=== PATIENT | female | born 1950 | race Caucasian/White ===

== ENCOUNTER 2024-10-10 18:47 | Observation (INO) | payer MEDICARE, SELFPAY ==
[2024-10-10] VITALS (12 sets, daily range): BP systolic 137–159; BP diastolic 81–99; PULSE 89–102; TEMP 36.7; O2SAT 93–96; BMI 36.6
--- NOTE | 2024-10-10 19:13 | ECG_ITS ---
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
--- NOTE | 2024-10-10 19:13 | CT_ITS ---
[address] [address] Patient Name: ANTHONY SCOTT MRN: [id number] date: 1950 Sex: F Assigned Patient Location: ER Current Patient Location: ER Accession/Order Number: [id number] Exam Date: 10/10/2024 20:45 Report Date: 10/10/2024 21:45 At the request of: MEHDI FALLON Procedure: CT soft tissue neck wo con EXAM: CT soft tissue neck wo con HISTORY: right parotid swelling. COMPARISON: None. TECHNIQUE: Axial CT scans of the neck were obtained without contrast. MPR images were obtained. Dose reduction techniques were achieved by using: automated exposure control and/or adjustment of mA and /or kV according to patient size and/or use of iterative reconstruction technique. FINDINGS: The visualized intracranial contents show no acute process. 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 The visualized orbits show no abnormal mass. The visualized paranasal sinuses show no air-fluid levels. Middle ear cavities and mastoids are clear. 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 There is swelling of the right parotid gland with associated mild edema in the right parapharyngeal space and adjacent lateral subcutaneous tissue. The left parotid gland appears normal. The nasopharynx, oropharynx and hypopharynx show no abnormal mass. The visualized oral tongue, the visualized floor the mouth and the submandibular glands appear normal. The thyroid gland is very small. The larynx shows no abnormal mass. The prevertebral space shows no edema. No adenopathy in the neck. The visualized upper lungs show nonspecific groundglass densities in the right upper lobe. Posterior discovertebral complexes result in moderate central spinal stenosis at C4-C5 and mild central spinal stenosis at C5-C6. Moderate stenosis of bilateral C3-C4 neural foramina and moderate to severe stenosis of the right C4-C5 C5-C6 neural foramina secondary to decreased disc height and uncovertebral hypertrophy. CT/CT soft tissue neck wo con IMPRESSION: Right parotiditis with associated mild edema in the right parapharyngeal space and adjacent lateral subcutaneous tissue. Posterior discovertebral complexes result in moderate central spinal stenosis at C4-C5 and mild central spinal stenosis at C5-C6. Moderate stenosis of bilateral C3-C4 neural foramina and moderate to severe stenosis of the right C4-C5 C5-C6 neural foramina secondary to decreased disc height and uncovertebral hypertrophy. Nonspecific groundglass densities in the visualized right upper lobe. Electronically authenticated by: ASHWIN LARA Date: 10/10/2024 21:45
--- NOTE | 2024-10-10 19:13 | XR_ITS ---
The [address] [address] Patient Name: ANTHONY SCOTT MRN: [id number] date: 1950 Sex: F Assigned Patient Location: ER Current Patient Location: ER Accession/Order Number: [id number] Exam Date: 10/10/2024 19:30 Report Date: 10/10/2024 20:28 At the request of: MEHDI FALLON Procedure: XR chest 1V EXAM: XR chest 1V at 1921 hours HISTORY: Cough COMPARISON: None. TECHNIQUE: AP upright portable chest x-ray FINDINGS: The heart is not enlarged and the vasculature is not distended. A very small amount of linear atelectasis or scarring is seen in the left lower lung. No acute infiltrate, effusion or pneumothorax is identified. The osseous structures are grossly intact. XR/XR chest 1V IMPRESSION: No apparent acute infiltrate or evidence of cardiac decompensation. Slight chronic changes are seen in the left lower lung. Direct comparison with a previous study may be helpful in determining the chronicity of these findings. Electronically authenticated by: YSABEL COLORADO Date: 10/10/2024 20:28
--- NOTE | 2024-10-10 19:15 | ED_ITS ---
HPI HPI - General Adult General Chief complaint: Weakness Stated complaint: General Weakness Time Seen by Provider: 10/10/24 19:04 Source: patient and family Mode of arrival: Wheelchair Limitations: physical limitation History of Present Illness HPI narrative: Patient is a 74-year-old female who presents to the emergency department with family member for multiple complaints that have been ongoing for almost 3 weeks. This patient has been previously evaluated at [facility] emergency department as well as [facility] emergency department. She presents to this emergency department tonight complaining of pain in the mouth associated with an ulcerated lesion on the tongue, cough and phlegm production as well as a painful swollen area to the right mandible under the right ear. She has had no fevers, shortness of breath, chest pain. She states she has been spitting up phlegm but has had no persistent vomiting or diarrhea. She states she was placed on an antibiotic for urinary tract infection, she only finished 2 to 3 days of this medication because she states it upset her stomach. 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 She states she came to this emergency department tonight because she cannot stand it anymore . She has been using [id number] nasal sprays and Zyrtec without improvement. Related Data Home Medications ?Medication ?Instructions ?Recorded ?Confirmed amlodipine 5 mg tablet 5 mg PO DAILY 10/10/24 10/10/24 atorvastatin 40 mg tablet 40 mg PO QPM 10/10/24 10/10/24 carvedilol 25 mg tablet 25 mg PO BID 10/10/24 10/10/24 chlorthalidone 25 mg tablet 12.5 mg PO DAILY 10/10/24 10/10/24 fluticasone propionate 50 2 spray intranasal DAILY 10/10/24 10/10/24 mcg/actuation nasal spray,suspension glipizide 2.5 mg tablet, extended 2.5 mg PO DAILY 10/10/24 10/10/24 release 24 hr hydralazine 100 mg tablet 100 mg PO TID 10/10/24 10/10/24 levothyroxine 75 mcg tablet 75 mcg PO DAILY 10/10/24 10/10/24 lorazepam 0.5 mg tablet 0.5 mg PO TID PRN anxiety 10/10/24 10/10/24 metoclopramide HCl 10 mg tablet 10 mg PO Q6H PRN nausea and 10/10/24 10/10/24 vomiting mirtazapine 15 mg tablet 15 mg PO QPM 10/10/24 10/10/24 pioglitazone 15 mg tablet 15 mg PO DAILY 10/10/24 10/10/24 spironolactone 25 mg tablet 25 mg PO BID 10/10/24 10/10/24 Allergies Allergy/AdvReac Type Severity Reaction Status Date / Time Sulfa (Sulfonamide Allergy Severe Rash Verified 10/10/24 19:02 Antibiotics) acetaminophen (From Vicodin) AdvReac Mild diaphoresis Verified 10/10/24 19:02 hydrocodone (From Vicodin) AdvReac Mild diaphoresis Verified 10/10/24 19:02 ketorolac (From Toradol) AdvReac Mild diaphoresis Verified 10/10/24 19:02 amoxicillin (From Augmentin) AdvReac Nausea Verified 10/10/24 19:02 clavulanic acid (From AdvReac Nausea Verified 10/10/24 19:02 Augmentin) Opioid HPI Opioid Management Most Recent Opioid Data: No Data to Display Review of Systems ROS Constitutional Denies: fever or chills Eyes Denies: change in vision Ears, nose, mouth, and throat Reports: throat pain and nasal congestion Cardiovascular Denies: chest pain Respiratory Reports: cough; Denies: shortness of breath Gastrointestinal Reports: nausea; Denies: abdominal pain, vomiting or diarrhea Musculoskeletal Denies: back pain Integumentary/Breast Denies: rash Neurological Denies: headache, numbness in extremities or weakness in extremities Hematologic/Lymphatic Denies: easy bruising or easy bleeding PFSH PFS Social History Little interest or pleasure in doing things: not at all Feeling down, depressed, or hopeless: not at all Exam Narrative Exam Narrative: Gen.: Awake, alert, in no distress Head: Normocephalic, atraumatic ENT: Moist mucous membranes, 1 cm ulcerated area to the right distal tip of the tongue. No vesicles or blistering of the mouth noted. Bilateral TMs are clear. Swollen firm and tender area inferior to the right ear located in the angle of the mandible. No overlying erythema or fluctuance. Respiratory: No respiratory distress, lungs clear bilaterally Cardio: Regular rate and rhythm Gastrointestinal: Abdomen is soft, nondistended and nontender to palpation Extremities: Moves extremities equally, no injuries noted Psych: Normal mood and affect Neuro: No focal neuro deficit Skin: Warm, dry, intact Constitutional Vital Signs, click to edit/add: Last Vital Signs Temp 98.1 F 10/10/24 19:03 Pulse 102 H 10/10/24 20:16 Resp 20 10/10/24 20:16 BP 159/81 H 10/10/24 20:16 Pulse Ox 96 10/10/24 20:16 O2 Del Method Room Air 10/10/24 19:03 Course Vital Signs Vital signs: Vital Signs Temperature 98.1 F 10/10/24 19:03 Pulse Rate 100 H 10/10/24 19:03 Respiratory Rate 18 10/10/24 19:03 Blood Pressure 137/99 H 10/10/24 19:03 Pulse Oximetry 95 10/10/24 19:03 Oxygen Delivery Method Room Air 10/10/24 19:03 Temperature 98.1 F 10/10/24 19:03 Pulse Rate 102 H 10/10/24 20:16 Respiratory Rate 20 10/10/24 20:16 Blood Pressure 159/81 H 10/10/24 20:16 Pulse Oximetry 96 10/10/24 20:16 Oxygen Delivery Method Room Air 10/10/24 19:03 Medical Decision Making MDM Narrative Medical decision making narrative: On arrival to the ER, I evaluated the patient and she complains primarily of pain inferior to the right ear where there is a swollen area in the angle of the mandible. She also has an ulcerated area to the tongue. Labs, urine specimen, EKG, chest x-ray and CT of the soft tissue of the neck were ordered for the patient. Magic mouthwash was ordered for stomatitis, IV fluids and Zofran were given. Records from [facility] were obtained showing the patient was seen on 10/06/2024. She had a CT of the abdomen and pelvis showing a pelvic mass which may represent cancer and she had unremarkable lab studies and negative COVID test. She was referred to gynecology and her primary care doctor. We did not receive records from [facility]. 2153: Patient received IV fluids, Zofran. She had episodes of gagging with the Magic mouthwash. No persistent vomiting in the ER. Records from [facility] shows that the patient's creatinine was 1.6 on 10/06/2024. Today her creatinine is elevated at 2.5 with a BUN of 65. Suspect this is due to poor oral intake from upper respiratory symptoms and stomatitis. CT of the soft tissue of the neck shows parotitis. Case is turned over to attending physician at this time. SHARED APC VISIT, PHYSICIAN ATTESTATION: [id number] I performed a substantive part of the MDM during the patient?s E/M visit. I personally evaluated and examined the patient. I personally made or approved the documented management plan and acknowledge its risk of complications. Medical Records Medical records reviewed: Yes I reviewed the patient's medical records Lab Data Lab results reviewed: Yes I reviewed the patient's lab results Labs: Lab Results 10/10/24 Range/Units 19:51 WBC 7.1 (4.0-11.0) 10^3/uL RBC 4.27 (4.20-5.40) 10^6/uL Hgb 12.0 (12.0-16.0) g/dL Hct 37.1 (36.0-48.0) % MCV 86.9 (81.0-99.0) fL MCH 28.1 (26.7-34.0) pg MCHC 32.3 (29.9-35.2) g/dL RDW 13.9 (11.0-15.0) % Plt Count 447 (150-450) 10^3/uL MPV 8.8 L (9.5-13.5) fL Seg Neuts % (Manual) 85.0 H (43.0-75.0) Lymphocytes % (Manual) 6.0 L (20.5-60.0) % Atypical Lymphs % (Man) 2.0 % Monocytes % (Manual) 7.0 (1.7-12.0) % Eosinophils % (Manual) 0.0 L (0.9-7.0) % Basophils % (Manual) 0.0 L (0.2-2.0) % Myelocytes % 1.0 Neutrophils # (Manual) 6.03 (1.4-6.5) 10^3/uL Lymphocytes # (Manual) 0.42 L (1.20-3.80) 10^3/uL Abs Atypical Lymphs Man 0.14 Monocytes # (Manual) 0.49 (0.30-0.80) 10^3/uL Eosinophils # (Manual) 0.00 (0.00-0.70) 10^3/uL Basophils # (Manual) 0.00 (0.00-0.10) 10^3/uL Myelocytes # 0.07 ESR >130 H (<=30) mm/hr PT 10.6 (9.0-11.6) sec INR 1.00 Sodium 131 L (136-145) mmol/L Potassium 5.1 (3.5-5.1) mmol/L Chloride 97 L (98-107) mmol/L Carbon Dioxide 15.8 L (21.0-32.0) mmol/L Anion Gap 23.3 BUN 65.0 H (7.0-18.0) mg/dL Creatinine 2.49 H (0.55-1.02) mg/dL Est GFR ( Amer) 23 L (>=60 mL/min/1.73m^2) Est GFR (Non-Af Amer) 19 L (>=60 mL/min/1.73m^2) BUN/Creatinine Ratio 26.1 Glucose 144 H (74-106) mg/dL Lactate 1.1 (0.4-2.0) mmol/L Calcium 9.1 (8.5-10.1) mg/dL Total Bilirubin 0.5 (0.2-1.0) mg/dL AST 48 H (15-37) U/L ALT 58 (14-59) U/L Alkaline Phosphatase 121 H (46-116) U/L Troponin I High Sens 7.9 (4.0-51.3) pg/mL C-Reactive Protein 14.21 H (<=0.50) mg/dL Total Protein 8.7 H (6.4-8.2) g/dL Albumin 2.9 L (3.4-5.0) g/dL Globulin 5.8 g/dL Albumin/Globulin Ratio 0.5 Amylase 814 H* (25-115) U/L Lipase 40.0 (16.0-77.0) U/L Imaging Data Chest x-ray: Radiologist's impression: ITS Impressions Chest X-Ray 10/10/24 19:13 IMPRESSION: No apparent acute infiltrate or evidence of cardiac decompensation. Slight chronic changes are seen in the left lower lung. Direct comparison with a previous study may be helpful in determining the chronicity of these findings. Electronically authenticated by: YSABEL COLORADO Date: 10/10/2024 20:[address] 10/10/24 19:13 IMPRESSION: Right parotiditis with associated mild edema in the right parapharyngeal space and adjacent lateral subcutaneous tissue. Posterior discovertebral complexes result in moderate central spinal stenosis at C4-C5 and mild central spinal stenosis at C5-C6. Moderate stenosis of bilateral C3-C4 neural foramina and moderate to severe stenosis of the right C4-C5 C5-C6 neural foramina secondary to decreased disc height and uncovertebral hypertrophy. Nonspecific groundglass densities in the visualized right upper lobe. Electronically authenticated by: ASHWIN LARA Date: 10/10/2024 21:45 ECG Data Attestation: I personally reviewed and interpreted this ECG as follows: (Normal sinus rhythm at a rate of 98 with occasional PVC, no acute ST elevation. EKG reviewed by attending physician) Discharge Plan Discharge Patient Disposition: Still a Patient
[2024-10-10] MEDS: ONDANSETRON PF 4 MG/2 ML VIAL IV (20:01)
[2024-10-10] MEDS: 0.9 % SODIUM CHLORIDE 1,000 ML 250 ML IV (20:01)
[2024-10-10 20:02] LABS: Hematocrit 37.1 % (36.0-48.0); Mean Corpuscular HGB Conc 32.3 g/dL (29.9-35.2); Mean Corpuscular Hemoglobin 28.1 pg (26.7-34.0); Mean Corpuscular Volume 86.9 fL (81.0-99.0); Mean Platelet Volume 8.8 fL (9.5-13.5); Platelet Count 447 10^3/uL (150-450); Red Blood Count 4.27 10^6/uL (4.20-5.40); Red Cell Distribution Width 13.9 % (11.0-15.0); White Blood Count 7.1 10^3/uL (4.0-11.0)
[2024-10-10] MEDS: lidocaine HCL 15 ML, MAG HYDROX/ALUMINUM HYD/SIMETH 30 ML, diphenhydrAMINE HCL 25 MG PO (20:02)
[2024-10-10 20:25] LABS: Erythrocyte Sedimentation Rate >130 mm/hr (<=30)
[2024-10-10 20:29] LABS: Prothrombin Time 10.6 sec (9.0-11.6)
[2024-10-10 20:35] LABS: Lactate/Lactic Acid 1.1 mmol/L (0.4-2.0)
[2024-10-10 20:36] LABS: Atypical Lymphocytes Abs Man 0.14; Lymphocytes Absolute Manual 0.42 10^3/uL (1.20-3.80); Monocytes Absolute Manual 0.49 10^3/uL (0.30-0.80); Myelocytes Absolute Manual 0.07; Segmented Neut Absolute Manual 6.03 10^3/uL (1.4-6.5)
[2024-10-10 20:37] LABS: Sodium 131 mmol/L (136-145)
[2024-10-10 20:38] LABS: Alanine Aminotransferase 58 U/L (14-59); Alkaline Phosphatase 121 U/L (46-116); Anion Gap 23.3; Aspartate Amino Transferase 48 U/L (15-37); BUN Creatinine Ratio 26.1; Bilirubin Total 0.5 mg/dL (0.2-1.0); Calcium 9.1 mg/dL (8.5-10.1); Carbon Dioxide 15.8 mmol/L (21.0-32.0); Chloride 97 mmol/L (98-107); Estimated GFR (African America 23 (>=60 mL/min/1.73m^2); Estimated GFR (Non-African Ame 19 (>=60 mL/min/1.73m^2); Glucose 144 mg/dL (74-106); Potassium 5.1 mmol/L (3.5-5.1); Total Protein 8.7 g/dL (6.4-8.2)
[2024-10-10 20:39] LABS: Albumin Globulin Ratio 0.5; Albumin Level 2.9 g/dL (3.4-5.0); C Reactive Protein 14.21 mg/dL (<=0.50); Globulin 5.8 g/dL
[2024-10-10 20:40] LABS: Amylase 814 U/L (25-115)
[2024-10-10 20:41] LABS: Troponin I High Sensitivity 7.9 pg/mL (4.0-51.3)
[2024-10-10] MEDS: PIPERACILLIN SODIUM/TAZOBACTAM 4.5 GM in 0.9 % SODIUM CHLORIDE 50 ML IV (22:29)
[2024-10-11] VITALS (27 sets, daily range): BP systolic 123–166; BP diastolic 72–110; PULSE 72–84; TEMP 36.7–37.6; O2SAT 88–95; BMI 36.9
[2024-10-11] MEDS: 0.9 % SODIUM CHLORIDE 1,000 ML 125 ML IV (01:48)
[2024-10-11] MEDS: PIPERACILLIN SODIUM/TAZOBACTAM 3.375 GM in 0.9 % SODIUM CHLORIDE 50 ML IV ×3 (06:19→22:17)
[2024-10-11] MEDS: ENSURE HP 237 ML LIQUID PO (09:11)
[2024-10-11 11:07] LABS: Glucometer 98 mg/dL (74-106)
[2024-10-11] MEDS: DEXTROSE 5 % IN WATER 1,000 ML 75 ML IV (11:31)
[2024-10-11] MEDS: 0.9 % SODIUM CHLORIDE 1,000 ML 50 ML IV (11:31)
[2024-10-11] MEDS: LORAZEPAM 2 MG/ML VIAL 0.5 MG IV (14:43)
--- NOTE | 2024-10-11 15:10 | CT_ITS ---
[address] [address] Patient Name: ANTHONY SCOTT MRN: [id number] date: 1950 Sex: F Assigned Patient Location: ER Current Patient Location: PR Accession/Order Number: [id number] Exam Date: 10/11/2024 15:48 Report Date: 10/11/2024 16:46 At the request of: SARY MIGUEL Procedure: CT abdomen pelvis wo con EXAM: CT abdomen pelvis wo con REASON FOR EXAM: Female, 74 years, elevated liver enzymes, MARTHA, nausea. TECHNIQUE: Computed tomography of the abdomen and pelvis is performed in the axial projection from the lung bases to the pubic symphysis. Sagittal and coronal reconstructed images are performed. Dose reduction techniques were achieved by using automated exposure control and/or adjustment of mA and/or KVP according to patient size and/or use of iterative reconstruction technique. Study was performed without IV contrast. Study was performed without oral contrast. COMPARISON: None. FINDINGS: Lung bases: There is prominence to the interstitial markings at the lung bases. This may represent chronic interstitial lung disease or interstitial edema. There is no pleural effusion. Coronary artery calcifications are partially imaged. Evaluation of the solid abdominal organs is limited in the absence of intravenous contrast. Liver: The liver is normal. Gallbladder: The gallbladder is not visualized. Spleen: The spleen is normal. Pancreas: There is diffuse pancreatic atrophy. Adrenal glands: There is diffuse enlargement of both adrenal glands, consistent with hyperplasia. Right kidney: The kidney is normal in size. There is nonspecific perinephric stranding. There is no renal calculus or hydronephrosis. Left kidney: The kidney is normal in size. There is nonspecific perinephric stranding. There is no renal calculus or hydronephrosis. Stomach: The stomach is under distended, limiting evaluation for wall abnormalities. Small bowel: The small bowel is normal. Large bowel: The colon is normal. Appendix: The appendix is visualized, and is normal. There is high density material within the appendix which may represent inspissated debris or prior contrast administration. Aorta: There are diffuse atherosclerotic calcifications of the abdominal aorta. IVC: The IVC is normal. Retroperitoneum: Normal retroperitoneum. Bladder: There is air within the bladder lumen. This may represent recent catheterization. Pelvic organs: The uterus is abnormal. The endometrium is significantly thickened for a postmenopausal patient and heterogeneous. The endometrium measures approximately 3.5 cm in thickness. Abdominal wall: Normal abdominal wall. Osseous structures: There are degenerative changes throughout the spine. Sclerotic foci are seen within the pelvis, within the right ilium adjacent to the sacroiliac joint, and within the left superior pubic ramus. Additional sclerotic focus is noted within the left posterior ilium. CT/CT abdomen pelvis wo con IMPRESSION: Significantly abnormal appearance to the uterus, with markedly thickened and heterogeneous endometrium for a postmenopausal patient. This is worrisome for endometrial carcinoma. Endometrial sampling is warranted. No discrete hepatic abnormality is seen. Sclerotic foci within the pelvis. Findings may represent bony metastases. Nonspecific bilateral perinephric stranding may represent medical renal disease. Prominent interstitial markings at the lung bases, question chronic interstitial lung disease or interstitial edema. Electronically authenticated by: MARÍA HENDERSON Date: 10/11/2024 16:46
--- NOTE | 2024-10-11 15:12 | PM.HP ---
HPI H&P: HPI History of Present Illness Chief complaint: General Weakness Narrative: Patient is a 74 y.o White female with past medical history of Hypothyroidism, Noninsulin dep type 2 diabetes, seasonal allergies, Hypertension, HLD, anxiety, Breast cancer with right mastectomy (2017) and bowel resection with colostomy reversal 2018, COVID and sepsis 2019 who presented to the ER last night with multiple complaints that have been ongoing for almost 3 weeks. This patient has been previously evaluated at [facility] emergency department as well as [facility] emergency department. She presents to this emergency department tonight complaining of pain in the mouth associated with an ulcerated lesion on the tongue, cough and phlegm production as well as a painful swollen area to the right mandible under the right ear. She has had no fevers, shortness of breath, chest pain. She states she has been spitting up phlegm but has had no persistent vomiting or diarrhea. She states she was placed on an antibiotic for urinary tract infection, she only finished 2 to 3 days of this medication because she states it upset her stomach. She has been to her regular primary care provider as well as her pharmacy clinical coordinator office. She states she came to this emergency department because she cannot stand it anymore . She has been using [id number] nasal sprays and Zyrtec without improvement. ON admission exam, Patient is accompanied by today. He also helps with history, Patient started getting ill about 1.5 weeks ago. She notes increased mucus production, and gagging which resulted in her inability to not take her pills or have very little food. She has lost 20 pounds. She had a UTI but could not take her antibiotic medication. She went to several ER's with no relief. about 2 days ago she developed several mouth ulcerations along with tongue ulceration making it even more difficult for her to ear or drink. Then swelling to the right side of her face and cheek, along with chills. Of note she says she was diagnosed with probable Endometrial cancer about 1 year ago but has not done anything about it yet. This was also seen on CT of the Ab/pelvis wo contrast done here. ER findings: WBC's 7.1, Hb 12.0, plt 447, CRP 14.21, Amylase 814, ESR 130, Na131, K 5.1, Cr 2.49, BUN 65, GFT 19, AST 48, ALT 58, Alk phos 121; CT head and neck soft tissues shows Right parotiditis with associated mild edema in the right parapharyngeal space and adjacent lateral subcutaneous tissue. CXR showed no acute disease. Opioid HPI Opioid Management Most Recent Pain and Opioid Data: Last Pain Scale 5 10/11/24 10:00 10/11/24 Review of Systems ROS Narrative ROS: a complete review of systems were reviewed with patient and are positive as below or listed in History of Chief Complaint. General: fever, chills, night sweats, weight loss Head: headache, no trauma, visual changes, nausea or vomiting Skin: no reported rashes, itching or sores Eyes: no blurriness of vision Ears: no reported hearing loss, vertigo, earache, or tinnitus, ear pain Throat: no sore throat, hoarseness; but swelling of neck/face , tongue pain Heart: no chest pain Lungs: no shortness of breath but cough GI: no diarrhea or vomiting/nausea, no appetite Urinary: no urinary urgency, frequency or pain Neuro: no numbness or tingling HEM: no bleeding issues or bruising ENDO: no thyroid problems Psych: no anxiety or depression [facility] Medical History (Updated 10/11/24 @ 17:39 by Elaine La DO) History of diabetes mellitus ?Z86.39 - Personal history of other endocrine, nutritional and metabolic disease (ICD-10) History of hypertension ?Z86.79 - Personal history of other diseases of the circulatory system (ICD-10) History of hypothyroidism ?Z86.39 - Personal history of other endocrine, nutritional and metabolic disease (ICD-10) History of diverticulitis ?Z87.19 - Personal history of other diseases of the digestive system (ICD-10) Surgical History History of colon surgery ?Z98.890 - Other specified postprocedural states (ICD-10) History of mastectomy ?Z90.10 - Acquired absence of unspecified breast and nipple (ICD-10) History of cholecystectomy ?Z90.49 - Acquired absence of other specified parts of digestive tract (ICD-10) Social History Little interest or pleasure in doing things: not at all Feeling down, depressed, or hopeless: not at all Meds Home Medications and Allergies Home Medications ?Medication ?Instructions ?Recorded ?Confirmed ?Type amlodipine 5 mg tablet 5 mg PO DAILY 10/10/24 10/10/24 History atorvastatin 40 mg tablet 40 mg PO QPM 10/10/24 10/10/24 History carvedilol 25 mg tablet 25 mg PO BID 10/10/24 10/10/24 History chlorthalidone 25 mg tablet 12.5 mg PO DAILY 10/10/24 10/10/24 History fluticasone propionate 50 2 spray intranasal DAILY 10/10/24 10/10/24 History mcg/actuation nasal spray,suspension glipizide 2.5 mg tablet, extended 2.5 mg PO DAILY 10/10/24 10/10/24 History release 24 hr hydralazine 100 mg tablet 100 mg PO TID 10/10/24 10/10/24 History levothyroxine 75 mcg tablet 75 mcg PO DAILY 10/10/24 10/10/24 History lorazepam 0.5 mg tablet 0.5 mg PO TID PRN anxiety 10/10/24 10/10/24 History metoclopramide HCl 10 mg tablet 10 mg PO Q6H PRN nausea and 10/10/24 10/10/24 History vomiting mirtazapine 15 mg tablet 15 mg PO QPM 10/10/24 10/10/24 History pioglitazone 15 mg tablet 15 mg PO DAILY 10/10/24 10/10/24 History spironolactone 25 mg tablet 25 mg PO BID 10/10/24 10/10/24 History Allergies Allergy/AdvReac Type Severity Reaction Status Date / Time Sulfa (Sulfonamide Allergy Severe Rash Verified 10/10/24 19:02 Antibiotics) acetaminophen (From Vicodin) AdvReac Mild diaphoresis Verified 10/10/24 19:02 hydrocodone (From Vicodin) AdvReac Mild diaphoresis Verified 10/10/24 19:02 ketorolac (From Toradol) AdvReac Mild diaphoresis Verified 10/10/24 19:02 amoxicillin (From Augmentin) AdvReac Nausea Verified 10/10/24 19:02 clavulanic acid (From AdvReac Nausea Verified 10/10/24 19:02 Augmentin) Exam Narrative Exam Narrative: General: Patient is alert, and oriented to person, place and time with normal affect, proper hygiene Skin: no visible rashes, or ulcers Head: atraumatic, acephalic Eyes: PERRLA, no nystagmus present, conjunctiva clear, no scleral icterus Ears: normal gross auditory acuity Nose: symmetric, no discharge, no maxillary or frontal sinus tenderness Mouth/Throat: no erythema, exudate, or tonsillar enlargement, but several mouth ulcerations with largest being about 1cm x 1cm on the right side of tongue Neck: palpable parotid gland on the right with swelling noted Heart: Normal rate and rhythm, no murmurs/rubs/gallops Lungs: no audible wheezes, crackles and normal breath sounds all lung dickson Abdomen: Normal audible bowel sounds, no distension Musculoskeletal: no swelling bilateral lower extremities Neuro: CN II-X grossly intact Constitutional Vital Signs, click to edit/add: Last Vital Signs Temp 99.2 F 10/11/24 11:34 Pulse 84 10/11/24 11:34 Resp 20 10/11/24 11:34 BP 148/98 H 10/11/24 11:34 Pulse Ox 93 L 10/11/24 13:11 O2 Del Method Room Air 10/11/24 11:34 Results Labs Labs: Short CBC 10/10/24 Range/Units 19:51 WBC 7.1 (4.0-11.0) 10^3/uL Hgb 12.0 (12.0-16.0) g/dL Hct 37.1 (36.0-48.0) % Plt Count 447 (150-450) 10^3/uL BMP 10/10/24 19:51 Sodium 131 L Potassium 5.1 Chloride 97 L Carbon Dioxide 15.8 L BUN 65.0 H Creatinine 2.49 H Glucose 144 H Calcium 9.1 Liver Function 10/10/24 Range/Units 19:51 Total Bilirubin 0.5 (0.2-1.0) mg/dL AST 48 H (15-37) U/L ALT 58 (14-59) U/L Alkaline Phosphatase 121 H (46-116) U/L Albumin 2.9 L (3.4-5.0) g/dL Assessment and Plan Assessment and Plan (1) Acute parotitis: Assessment and Plan: Patient has been accepted at [facility] for ENT evaluation. She was placed on Zosyn in the ER. I have added IV Tylenol for pain control. I have also added viral testing of influenza but at transfer facility would recommend testing for mumps virus, HSV, EBV these are send out tests at this facility. (2) Tongue ulceration: Assessment and Plan: could also be viral related but limiting oral intake, pain control (3) Acute kidney injury: Assessment and Plan: Patient with history of multiple ER visits, Could be contrast induced nephropathy. Will treat with IVF. Cr 2.49, BUN 65. No prior history of CKD (4) Dehydration: Assessment and Plan: Patient with poor appetite and intake over the last few days, continue IVF, clear liquids as tolerated (5) Endometrial cancer: Assessment and Plan: as seen on our CT of the abd/pelvis, i could not use contrast secondary to renal impairment; this is known to patient. Further investigation per tertiary care center if warranted. (6) Generalized weakness: Assessment and Plan: could be dehydration verse viral/bacterial infection. (7) History of diabetes mellitus: Assessment and Plan: Holding oral medications for now. check q4 hours accuchecks (8) History of hypertension: Assessment and Plan: Holding home meds for now, prn hydralazine if needed. (9) History of hypothyroidism: Assessment and Plan: will resume levothyroxine when can tolerate to swallow Plan Patient is a full code Continue heparin for DVT propylaxis Patient is inpatient status, Expectation to transfer to [facility] tertiary care [facility] accepting Dr. Hernandes once bed available
[2024-10-11 15:30] LABS: Basophils Percent Auto 0.3 % (0.2-2.0); Eosinophils Absolute Auto 0.1 10^3/uL (0.0-0.7); Eosinophils Percent Auto 1.4 % (0.9-7.0); Hematocrit 32.4 % (36.0-48.0); Hemoglobin 10.4 g/dL (12.0-16.0); Immature Granulocytes Abs Auto 0.03 10^3/uL (0.00-0.03); Immature Granulocytes Pct Auto 0.5 % (0.0-0.5); Lymphocytes Absolute Auto 0.4 10^3/uL (1.2-3.8); Lymphocytes Percent Auto 5.5 % (20.5-60.0); Mean Corpuscular HGB Conc 32.1 g/dL (29.9-35.2); Mean Corpuscular Hemoglobin 28.3 pg (26.7-34.0); Mean Corpuscular Volume 88.3 fL (81.0-99.0); Mean Platelet Volume 8.7 fL (9.5-13.5); Monocytes Absolute Auto 0.3 10^3/uL (0.3-0.8); Neutrophils Absolute Auto 5.6 10^3/uL (1.4-6.5); Neutrophils Percent Auto 87.3 % (43.0-75.0); Platelet Count 379 10^3/uL (150-450); Red Blood Count 3.67 10^6/uL (4.20-5.40); Red Cell Distribution Width 13.9 % (11.0-15.0); White Blood Count 6.4 10^3/uL (4.0-11.0)
[2024-10-11 15:42] LABS: Glucometer 131 mg/dL (74-106)
[2024-10-11 15:48] LABS: Alanine Aminotransferase 50 U/L (14-59); Albumin Globulin Ratio 0.6; Albumin Level 2.5 g/dL (3.4-5.0); Alkaline Phosphatase 100 U/L (46-116); Aspartate Amino Transferase 49 U/L (15-37); BUN Creatinine Ratio 24.3; Bilirubin Total 0.6 mg/dL (0.2-1.0); Carbon Dioxide 15.7 mmol/L (21.0-32.0); Chloride 103 mmol/L (98-107); Estimated GFR (African America 33 (>=60 mL/min/1.73m^2); Estimated GFR (Non-African Ame 27 (>=60 mL/min/1.73m^2); Globulin 4.2 g/dL; Potassium 4.7 mmol/L (3.5-5.1); Sodium 135 mmol/L (136-145); Total Protein 6.7 g/dL (6.4-8.2)
[2024-10-11 15:54] LABS: Calcium 7.8 mg/dL (8.5-10.1); Glucose 130 mg/dL (74-106)
[2024-10-11 17:06] LABS: Influenza Virus A Antigen Negative; Influenza Virus B Antigen Negative; Internal Control Within Normal Limits
[2024-10-11] MEDS: LACTATED RINGER'S SOLUTION 1,000 ML 125 ML IV (19:00)
[2024-10-11] MEDS: SCOPOLAMINE 1 MG/3 DAYS TRANSDERM PATCH 1 PATCH TD (19:01)
[2024-10-11] MEDS: FAMOTIDINE/PF 20 MG/2 ML VIAL IV (19:01)
[2024-10-11] MEDS: ACETAMINOPHEN 1,000 MG/100 ML PREMIX 400 MG IV (19:01)
[2024-10-11 19:18] LABS: Bilirubin Urine NEGATIVE (NEGATIVE); Blood Urine NEGATIVE (NEGATIVE); Color Urine LT. YELLOW (YELLOW); Glucose Urine UA NEGATIVE (NEGATIVE); Ketones Urine TRACE mg/dL (NEGATIVE); Leukocyte Esterase Urine TRACE (NEGATIVE); Nitrite Urine NEGATIVE (NEGATIVE); Protein Urine TRACE mg/dL (NEG/TRACE); Urobilinogen Urine 0.2 EU/dL (0.2-1.0); pH Urine 5.5 (5.0-9.0)
[2024-10-11 19:19] LABS: Clarity Urine SLIGHTLY CLOUDY (CLEAR)
[2024-10-11 19:27] LABS: RBC Urine 0-2 #/HPF (0-2)
[2024-10-11 19:28] LABS: Bacteria Urine SMALL #/HPF (NONE SEEN); Cast Seen? NONE SEEN #/LPF (NONE SEEN); Crystals Seen? None Seen #/HPF (None Seen); Mucus Urine NONE SEEN (NONE SEEN); Squamous Epithelial Cell Urine FEW #/LPF (NONE/RARE); Urine Culture Indicated YES
[2024-10-11 20:17] LABS: Glucometer 103 mg/dL (74-106)
[2024-10-11] MEDS: HEPARIN SODIUM (PORCINE) 5,000 UNIT/ML VIAL 5000 UNIT SUBQ (22:16)
[2024-10-12] VITALS: BP 163/78; PULSE 81; TEMP 36.6; O2SAT 91
[2024-10-12 00:03] VITALS: PULSE 74
[2024-10-12 00:56] LABS: Glucometer 112 mg/dL (74-106)
--- NOTE | 2024-10-12 02:41 | PC.NURSE ---
[facility] here to take patient to [facility] in [facility]. Report Called to Sherly at this time. Patient has no c/o.
--- NOTE | 2024-10-12 17:49 | P.DS_ITS ---
DS: Providers Provider Date of admission: 10/11/24 16:38 Primary care physician: JENNYFER SHANKS MD Admitting clinician: Elaine La Consults: 10/11/24 Consult to Dietitian Routine Reason for consultation: weight loss lack of jo-ann Discharging clinician: Elaine La DS: Diagnosis Discharge Diagnosis (1) Acute parotitis: (2) Tongue ulceration: (3) Acute kidney injury: (4) Dehydration: (5) Endometrial cancer: (6) Generalized weakness: (7) History of diabetes mellitus: (8) History of hypertension: (9) History of hypothyroidism: DS: Summary Hospital Course Hospital Course: Patient was transferred at 2:43am on 10/12/24 to [facility] in [facility]. Time Spent with Patient Time attestation: Total time spent providing and/or coordinating discharge services: Exam Narrative Exam Narrative: Patient was transferred prior to my arrival this morning. Constitutional Vital Signs, click to edit/add: Last Vital Signs Temp 98 F 10/12/24 00:00 Pulse 74 10/12/24 00:03 Resp 18 10/12/24 00:00 BP 163/78 H 10/12/24 00:00 Pulse Ox 91 L 10/12/24 00:00 O2 Del Method Room Air 10/12/24 00:00 DS: Data Data Completed and Pending Labs on day of discharge: Labs from last 24 hours 10/12/24 10/11/24 10/11/24 00:55 20:15 19:14 Urine Color Lt. yellow Urine Clarity Slightly cloudy A Urine pH 5.5 Ur Specific Adamant 1.020 Urine Protein Trace Urine Glucose (UA) Negative Urine Ketones Trace A Urine Occult Blood Negative Urine Nitrite Negative Urine Bilirubin Negative Urine Urobilinogen 0.2 Ur Leukocyte Esterase Trace A Urine RBC 0-2 Urine WBC 5-10 A Ur Squamous Epith Cells Few A Urine Crystals None seen Urine Bacteria Small A Urine Casts None seen Urine Mucus None seen Ur Culture Indicated? Yes POC Glucose 112 H 103 Discharge Plan Discharge Disposition: [facility] Condition: Fair Discharge Date/Time: 10/12/24 02:43 Discharge location: [facility], Dr. Hernandes accepting physician
== END 2024-10-12 02:43 | disposition short-term general hospital (02) | DRG 155 ==
LOC: ER 10-11 00:32 → MS 10-11 17:46
PROVIDERS: Physician Assistant; Admitting Provider Family Medicine; Emergency Provider Emergency Medicine; PCP Internal Medicine; Visit Provider Family Medicine
DX: K11.21 Acute sialoadenitis (principal); N17.9 Acute kidney failure, unspecified; K12.1 Other forms of stomatitis; Z87.440 Personal history of urinary (tract) infections; Z79.899 Other long term (current) drug therapy; E03.9 Hypothyroidism, unspecified; E11.9 Type 2 diabetes mellitus without complications; J30.2 Other seasonal allergic rhinitis; I10 Essential (primary) hypertension; E78.5 Hyperlipidemia, unspecified; F41.9 Anxiety disorder, unspecified; Z85.3 Personal history of malignant neoplasm of breast; Z90.11 Acquired absence of right breast and nipple; Z90.49 Acquired absence of other specified parts of digestive tract; Z86.16 Personal history of COVID-19; Z79.84 Long term (current) use of oral hypoglycemic drugs; K12.30 Oral mucositis (ulcerative), unspecified; E86.0 Dehydration; C54.1 Malignant neoplasm of endometrium; R53.1 Weakness; R63.4 Abnormal weight loss; Z68.36 Body mass index [BMI] 36.0-36.9, adult
CPT/HCPCS: 36415; 70490; 71045; 74176; 80053; 81001; 82150; 82948; 83605; 83690; 84484; 85007; 85025; 85027; 85610; 85652; 86140; 87086; 87804; 93005; 94761; 96365; 96366; 96375; 99285; G0378; J0131; J1644; J2060; J2405; J2543; J3490